=== PATIENT | male | born 1985 | race African-American/Black ===

== ENCOUNTER 2018-01-25 11:19 | Emergency (ER) | payer OTHER ==
[~2018-01-25] VITALS: Ht 193 cm; Wt 86.2 kg
[2018-01-25 11:33] VITALS: BP 136/82
[2018-01-25] MEDS ORDERED: IBUPROFEN 600 MG TABLET PO ONE ×2 (12:30→12:31)
--- NOTE | 2018-01-25 13:35 | NUR ---
MARKED FOR D/C, WAITING ON ACI
== END 2018-01-25 14:12 | disposition home or self-care (01) ==
LOC: ER 11:21
DX: S52.133A Displaced fracture of neck of unspecified radius, initial encounter for closed fracture (principal); I10 Essential (primary) hypertension; K58.9 Irritable bowel syndrome, unspecified; V29.69XA Unspecified motorcycle rider injured in collision with other motor vehicles in traffic accident, initial encounter; Y93.89 Activity, other specified; Y92.89 Other specified places as the place of occurrence of the external cause; Y99.8 Other external cause status
CPT/HCPCS: 73080; 99284; A4606; Z7610